=== PATIENT | male | born 2000 | race African-American/Black ===

== ENCOUNTER 2021-07-26 21:57 | Emergency (ER) | payer BC, OTHER ==
[2021-07-26 22:07] VITALS: BP 124/68; PULSE 75; RESP 18; TEMP 97.6
--- NOTE | 2021-07-26 22:12 | ED ---
Upper Extremity HPI - General Chief Complaint: Extremity Injury, Upper Stated Complaint: Left Hand Injury Time Seen by Provider: 07/26/21 22:05 Source: patient, RN notes reviewed Mode of arrival: ambulatory Limitations: no limitations - History of Present Illness Initial Comments: 20-year-old male presents emergency Department with chief complaint of left hand injury. Patient states he punched a wall last night. Patient went to pain, swelling. Patient states he had a prior tendon injury and the distal portion of his finger. He has no pain over this region. Patient states that it is swollen, deformed is right-hand dominant other complaints. - Related Data Allergies Allergy/AdvReac Type Severity Reaction Status Date / Time No Known Allergies Allergy Verified 07/26/21 22:07 Review of Systems ROS Statement: Those systems with pertinent positive or pertinent negative responses have been documented in the HPI. ROS Other: All systems not noted in ROS Statement are negative. Past Medical History Past Medical History: Asthma History of Any Multi-Drug Resistant Organisms: None Reported Past Surgical History: No Surgical Hx Reported Past Psychological History: ADD/ADHD, Bipolar, Schizophrenia Smoking Status: Vaper Past Alcohol Use History: Occasional Past Drug Use History: Marijuana General Exam Limitations: no limitations General appearance: alert, in no apparent distress Head exam: Present: atraumatic, normocephalic, normal inspection Respiratory exam: Present: normal lung sounds bilaterally. Absent: respiratory distress, wheezes, rales, rhonchi, stridor Cardiovascular Exam: Present: regular rate, normal rhythm, normal heart sounds. Absent: systolic murmur, diastolic murmur, rubs, gallop, clicks Extremities exam: Present: other (Left hand there is some swelling noted over the fifth metacarpal region, neurovascular intact there is moderate tenderness no wrist tenderness no digit tenderness. Cap refill less than 2 seconds) Course Vital Signs 07/26/21 22:03 Temperature 97.6 F Pulse Rate 75 Respiratory 18 Rate Blood Pressure 124/68 O2 Sat by Pulse 99 Oximetry Procedures - Orthopedic Splinting/Casting Injury #1 Side: left Upper Extremity Injury Location: short arm, hand Upper Extremity Immobilizer: ulnar gutter, synthetic pre-padded splint Medical Decision Making - Medical Decision Making X-ray shows distal fifth metacarpal fracture. Patient was splinted and will follow-up with orthopedics return parameters discussed. Disposition Clinical Impression: Fracture of fifth metacarpal bone of left hand Disposition: HOME SELF-CARE Condition: Stable Instructions (If sedation given, give patient instructions): Hand Fracture (ED) Additional Instructions: Please return to the Emergency Department if symptoms worsen or any other concerns. Is patient prescribed a controlled substance at d/c from ED?: No Referrals: Laurie Mejía MD [Primary Care Provider] - 1-2 days Anabela Mattson DO [Doctor of Osteopathic Medicine] - 1-2 days Time of Disposition: 22:15
--- NOTE | 2021-07-26 22:17 | XR ---
EXAMINATION TYPE: XR hand complete LT DATE OF EXAM: 07/26/2021 COMPARISON: NONE HISTORY: Trauma. Pain. TECHNIQUE: 3 views FINDINGS: There is mildly impacted acute transverse fracture through the neck of the fifth metacarpal head. There is slight posterior angulation. There is no dislocation. The fingers are intact. There i s some posterior soft tissue swelling. IMPRESSION: Acute boxer fracture of the fifth metacarpal.
== END 2021-07-26 22:50 | disposition home or self-care (01) ==
LOC: EC 21:57
DX: S62.307A Unspecified fracture of fifth metacarpal bone, left hand, initial encounter for closed fracture (principal); J45.909 Unspecified asthma, uncomplicated; F90.9 Attention-deficit hyperactivity disorder, unspecified type; F20.9 Schizophrenia, unspecified; F31.9 Bipolar disorder, unspecified; F17.290 Nicotine dependence, other tobacco product, uncomplicated; F12.90 Cannabis use, unspecified, uncomplicated; Z72.89 Other problems related to lifestyle
CPT/HCPCS: 99283